=== PATIENT | female | born 1955 | race Caucasian/White ===

== ENCOUNTER 2016-11-07 20:56 | Inpatient (IN) | payer MEDICARE, MEDICAID ==
--- NOTE | 2016-11-07 21:04 | ED Physician Chart ---
Chief Complaint/HPI - Patient Information Date Seen:: 11/07/16 Time Seen:: 20:58 Chief Complaint:: hip pain History of Present Illness:: 61-year-old female living at a board and care, complains of acute, constant, aching, sharp, 8 out of 10, nonradiating, severe, left hip pain that started about 2 hours ago after she fell out of the bunk bed onto her left hip. Allergies:: Allergies Allergy/AdvReac Type Severity Reaction Status Date / Time No Known Allergies Allergy Verified 07/07/16 15:38 Historian:: Patient, EMS Review:: Nurse's Note Reviewed, EMS run form Reviewed, Transfer documents Reviewed Review of Systems - Review of Systems Other: Complete system review otherwise unremarkable except as noted in HPI. Past Medical History - Past Medical History Past Medical History: PUD/GERD Family History: None Social History: Non Smoker, No Alcohol, No Drug Use Surgical History: None Psychiatricy History: Bipolar Medication: Reviewed Family Medical History - Family Member Grandmother History Unknown: Yes Ethnicity: Unknown Living Status: Unknown Hx Family Cancer: Yes (MOTHER) Hx Family Coronary Artery Disease: Yes (FATHER) Hx Family Congestive Heart Failure: (UNKNOWN) Hx Family Hypertension: (UNKNOWN) Hx Family Stroke: (UNKNOWN) Hx Family Diabetes: (UNKNOWN) Hx Family Seizures: (UNKNOWN) Hx Family Dementia: (UNKNOWN) Hx Family AIDS: (UNKNOWN) Hx Family HIV: No Hx Family COPD: (UNKNOWN) Hx Family Hepatitis: (UNKNOWN) Hx Family Psychiatric Problems: (UNKNOWN) Hx Family Tuberculosis: (UNKNOWN) Physical Exam - Physical Examination Other:: INITIAL VITAL SIGNS: Reviewed by me GENERAL: Alert and interactive. No acute distress HEAD: Head is normocephalic and atraumatic EYES: EOMI. . No scleral icterus. No conjunctival injection ENT: Moist mucous membranes. NECK: Supple. No masses. Full range of motion RESPIRATORY: No tachypnea. Clear breath sounds bilaterally. No wheezing, rales, or rhonchi CV: Regular rate and rhythm. No murmurs, rubs, or gallops ABDOMEN: Soft, non-distended, non-tender. No guarding. No rebound. No masses. EXTREMITIES: Left hip has limited range of motion due to pain. SKIN: Warm and dry. No obvious rashes. NEUROLOGIC: Alert and oriented. Face is symmetric. Speech is normal. Moves all extremities equally. Motor and sensory distally intact. Labs/Radiology/EKG Results - Lab Results Results: Lab Results 11/07/16 11/07/16 11/07/16 Range/Units 22:49 22:49 22:49 WBC 13.0 H D (4.8-10.8) Th/cmm RBC 4.74 (3.80-5.10) Mil/cmm Hgb 14.0 (11.7-15.5) gm/dL Hct 41.2 (35.0-45.0) % MCV 86.9 (81-100) fl MCH 29.5 (27.0-31.0) pg MCHC Differential 34.0 (28.0-36.0) pg RDW 12.0 (11.5-20.0) % Plt Count 306 (150-400) Th/cmm MPV 7.6 fl Neutrophils % 56.9 (40.0-80.0) % Lymphocytes % 32.0 (20.0-50.0) % Monocytes % 7.5 (2.0-10.0) % Eosinophils % 2.8 (0.0-5.0) % Basophils % 0.8 (0.0-2.0) % PT 9.3 L (9.5-11.5) SECONDS INR 0.94 (0.5-1.4) PTT (Actin FS) 24.6 L (26.0-38.0) SECONDS Sodium 136 (136-145) mEq/L Potassium 3.8 (3.5-5.1) mEq/L Chloride 106 (98-107) mEq/L Carbon Dioxide 26.8 (21.0-31.0) mEq/L Anion Gap 7.0 (7.0-16.0) BUN 12 (7-25) mg/dL Creatinine 0.7 (0.6-1.2) mg/dL Est GFR ( Amer) > 60.0 (>90) ml/min Est GFR (Non-Af Amer) > 60.0 ml/min BUN/Creatinine Ratio 17.1 Glucose 106 H (70-105) mg/dL Whole Bld Lactic Acid (0.60-2.00) mmol/L Calcium 9.2 (8.6-10.3) mg/dL Total Bilirubin 0.2 L (0.3-1.0) mg/dL AST 15 (13-39) U/L ALT 20 (7-52) U/L Alkaline Phosphatase 69 (34-104) U/L Total Protein 6.4 (6.0-8.3) gm/dL Albumin 3.7 (3.7-5.3) gm/dL Globulin 2.7 gm/dL Albumin/Globulin Ratio 1.4 (1.0-1.8) 11/07/16 Range/Units 22:49 WBC (4.8-10.8) Th/cmm RBC (3.80-5.10) Mil/cmm Hgb (11.7-15.5) gm/dL Hct (35.0-45.0) % MCV (81-100) fl MCH (27.0-31.0) pg MCHC Differential (28.0-36.0) pg RDW (11.5-20.0) % Plt Count (150-400) Th/cmm MPV fl Neutrophils % (40.0-80.0) % Lymphocytes % (20.0-50.0) % Monocytes % (2.0-10.0) % Eosinophils % (0.0-5.0) % Basophils % (0.0-2.0) % PT (9.5-11.5) SECONDS INR (0.5-1.4) PTT (Actin FS) (26.0-38.0) SECONDS Sodium (136-145) mEq/L Potassium (3.5-5.1) mEq/L Chloride (98-107) mEq/L Carbon Dioxide (21.0-31.0) mEq/L Anion Gap (7.0-16.0) BUN (7-25) mg/dL Creatinine (0.6-1.2) mg/dL Est GFR ( Amer) (>90) ml/min Est GFR (Non-Af Amer) ml/min BUN/Creatinine Ratio Glucose (70-105) mg/dL Whole Bld Lactic Acid 1.11 (0.60-2.00) mmol/L Calcium (8.6-10.3) mg/dL Total Bilirubin (0.3-1.0) mg/dL AST (13-39) U/L ALT (7-52) U/L Alkaline Phosphatase (34-104) U/L Total Protein (6.0-8.3) gm/dL Albumin (3.7-5.3) gm/dL Globulin gm/dL Albumin/Globulin Ratio (1.0-1.8) ED Septic Shock - . Is Septic Shock (SBP<90, OR Lactate>4 mmol\L) present?: No Reassessment (Disposition) - Reassessment Reassessment:: Patient is status post fall. She is in severe pain in the left hip and low back area. She also has leukocytosis. I discussed the case in detail with Dr. Yi. He will admit the patient for further workup and treatment. Reassessment Condition:: Improved - Diagnosis Diagnosis:: Leukocytosis Status post fall Hypotension - Patient Disposition Admitting Medical Physician:: Matt Yi Time:: 23:49 Condition at Disposition:: Stable ED Discharge Plan - Patient Disposition Admit/Discharge/Transfer: Acute Care w/in this hosp
[2016-11-07 23:11] LABS: % BASOPHILS 0.8 % (0.0-2.0); % EOSINOPHILS 2.8 % (0.0-5.0); % MONOCYTES 7.5 % (2.0-10.0); % NEUTROPHILS 56.9 % (40.0-80.0); HEMATOCRIT 41.2 % (35.0-45.0); MEAN CELL VOLUME 86.9 fl (81-100); MEAN CORPUSCULAR HEMOGLOBIN 29.5 pg (27.0-31.0); MEAN PLATELET VOLUME 7.6 fl; NEUTROPHILE ABSOLUTE 7.3 Th/cmm (1.8-8.0); PLATELET COUNT 306 Th/cmm (150-400); RED BLOOD COUNT 4.74 Mil/cmm (3.80-5.10)
[2016-11-07 23:20] LABS: INR 0.94 (0.5-1.4); PROTHROMBIN TIME (TEST) 9.3 SECONDS (9.5-11.5)
[2016-11-07 23:21] LABS: ALB/GLOB RATIO 1.4 (1.0-1.8); ALKALINE PHOSPHATASE 69 U/L (34-104); BILIRUBIN,TOTAL 0.2 mg/dL (0.3-1.0); BUN - UREA NITROGEN 12 mg/dL (7-25); BUN/CREATININE RATIO 17.1; CALCIUM SERUM 9.2 mg/dL (8.6-10.3); CARBON DIOXIDE 26.8 mEq/L (21.0-31.0); CHLORIDE 106 mEq/L (98-107); CREATININE - SERUM 0.7 mg/dL (0.6-1.2); GLUCOSE 106 mg/dL (70-105); POTASSIUM SERUM 3.8 mEq/L (3.5-5.1); SGOT 15 U/L (13-39); SGPT/ALT 20 U/L (7-52); SODIUM SERUM 136 mEq/L (136-145)
[2016-11-08] MEDS ORDERED: guaiFENesin 200 MG/10 ML UDC PO PRN (00:04)
[2016-11-08 00:14] LABS: URINE BILIRUBIN NEGATIVE (NEGATIVE); URINE BLOOD NEGATIVE (NEGATIVE); URINE COLOR YELLOW; URINE GLUCOSE (UA) NEGATIVE (NEGATIVE); URINE KETONE NEGATIVE (NEGATIVE); URINE PH 5.5; URINE PROTEIN NEGATIVE (NEGATIVE); URINE UROBILINOGEN 0.2 E.U./dL (0.2 - 1.0)
[2016-11-08 00:15] LABS: URINE BACTERIA FEW /hpf (NONE SEEN); URINE EPITHELIAL CELLS FEW /lpf (FEW); URINE RBC 0-2 /hpf (0-5)
[2016-11-08] MEDS ORDERED: D5-0.45NS 1,000 ML IV SCH (00:15)
[2016-11-08] MEDS: Hydrocodone/APAP 5mg/325mg Tab PO PRN ×4 (01:38→21:58)
[2016-11-08 03:41] VITALS: BP 128/59
--- NOTE | 2016-11-08 04:13 | Admit Criteria Form ---
Admit Criteria Forms - Admit Criteria Diagnosis: MUSCULOSKELETAL DISEASE [facility] Clinical Indications for Admission to Inpatient Care (Place 'X' for any and all applicable criteria): Hospital admission is needed for appropriate care of the patient because of ANY ONE of the following: [X ]I. Fracture, dislocation, or other musculoskeletal injury requiring inpatient care(medical) as indicated by ANY ONE of the following(4)(5)(6)(7) [ ]a) Vertebral fracture requiring observation for instability or neurologic compromise (8) [ ]b) Compartment syndrome (proven or cannot be ruled out during observation level of care) (9) [ ]c) Limb-threatening injury [ ]d) Major injury requiring inpatient stabilization such as traction initiation or external fixation before internal fixation or closure of complex or open fracture [ ]e) Major injury requiring inpatient treatment after emergency or observation level care (as appropriate) [X ]f) Severe pain requiring acute inpatient management [ ]II. Newly diagnosed or suspected bone, joint, or orthopedic device infection (e.g., osteomyelitis, septic arthritis) needing ANY ONE of the following(1)(2)(3) [ ]a) IV antibiotics that cannot be initiated in other than inpatient setting (e.g., patient too unstable or home infusion not available) [ ]b) Device removal or replacement [ ]c) Bone or soft tissue debridement [ ]d) Joint drainage (drain placement or repetitive aspirations) [ ]III. Severe rheumatologic disease (e.g., systemic lupus erythematosus, rheumatoid arthritis) with complications or comorbidities (Also use Optimal Recovery Care Criteria or General Recovery Criteria as appropriate on the basis of predominant condition), including ANY ONE of the following(10 )(11)(12)(13) [ ]a) Severe infection (e.g., NOTEMAN infection, sepsis) (14) [ ]b) Respiratory complications, including ANY ONE of the following: [ ]i) Pleural effusion with respiratory compromise [ ]ii) Pulmonary hypertension with congestive failure [ ]iii) Respiratory failure [ ]iv) Pulmonary hemorrhage (15) [ ]c) Hematologic disease, including ANY ONE of the following: [ ]i) Coagulopathy with bleeding [ ]ii) Thrombosis with hypercoagulable state [ ]iii) Thrombotic thrombocytopenic purpura [ ]d) Cerebritis with seizures, psychosis, or other severe abnormalities [ ]e) Vertebral destruction with monitoring needed for cervical myelopathy& possible respiratory compromise [ ]f) Exacerbation that requires inpatient treatment (e.g., intravenous immunosuppression) (16) [ ]g) Acute renal failure [ ]IV. Severe vasculitis with complications or comorbidities (Also use Optimal Recovery Care Criteria or General Recovery Criteria as appropriate on the basis of predominant condition), including ANY ONE of the following(11)(12)(17)(18)(19)(20) [ ]a) NOTEMAN vasculitis with seizures, psychosis, or other severe abnormalities (22) [ ]b) Renal failure (16) [ ]c) Pulmonary hemorrhage (15) [ ]d) Cerebral infarction [ ]e) Gastrointestinal ischemia [ ]f) Gangrene or threatened amputation [ ]g) Exacerbation that requires inpatient treatment (e.g., intravenous immunosuppression) (19)(21) [ ]V. Severe myopathy as indicated by ANY ONE of the following (28)(29) [ ]a) New onset of airway compromise or inability to swallow [ ]b) Respiratory deterioration with observation needed for impending respiratory failure [ ]c) Exacerbation that requires inpatient treatment (e.g., intravenous immunosuppression) [ ]. Severe gout (crystal arthropathy) as indicated by ANY ONE of the following (23)(24) [ ]a) Severe pain requiring acute inpatient management [ ]b) Exacerbation that requires inpatient treatment (e.g., intravenous treatment) [ ]VII.Rhabdomyolysis and ANY ONE of the following (25)(26)(27) [ ]a) Acute renal failure [ ]b) Need for intravenous hydration after emergency or observation level care (as appropriate) [ ]c) Inability to maintain oral hydration [ ]d) Change in mental status [ ]e) Electrolyte abnormality that remains after emergency or observation level care (as appropriate) [ ]VIII Post amputation complication, as indicated by ANY ONE of the following [ ]a) Infection [ ]b) Dehiscence [ ]c) Myodesis failure [ ]IX. Severe pain requiring acute inpatient management as indicated by ALL of the following (30)(31)(32) [ ]a) Continuous or frequent (e.g., every 2 to 4 hrs) parenteral analgesics required [A] [ ]b) Rapid improvement expected from treatment or acute intervention ( e.g., surgery, anesthesia procedure[B] [ ]X. Musculoskeletal Disease and ALL of the following: [ ]a) Symptom or finding for which emergency and observation care have failed or are not considered appropriate (Use General Criteria: Observation Care as appropriate) [ ]b) Presence of ANY ONE of the following [ ]i) A General Admission Criteria [ ]ii) A Pediatric General Admission Criteria The original [facility] content created by [facility] has been revised. The portions of the content which have been revised are identified through the use of italic text or in bold, and [facility] has neither reviewed nor approved the modified material. All other unmodified content is copyright [facility]. Please see references footnoted in the original [facility] edition 2016 Admit Criteria Met?: Yes
[2016-11-08 05:45] LABS: % BASOPHILS 0.9 % (0.0-2.0); % LYMPHOCYTES 34.8 % (20.0-50.0); % MONOCYTES 8.9 % (2.0-10.0); % NEUTROPHILS 52.4 % (40.0-80.0); HEMATOCRIT 41.5 % (35.0-45.0); MEAN CELL VOLUME 87.6 fl (81-100); MEAN CORPUSCULAR HEMOGLOBIN 29.6 pg (27.0-31.0); MEAN CORPUSCULAR HGB CONC 33.8 pg (28.0-36.0); MEAN PLATELET VOLUME 7.5 fl; PLATELET COUNT 321 Th/cmm (150-400); RED BLOOD COUNT 4.74 Mil/cmm (3.80-5.10)
[2016-11-08 05:54] LABS: WHITE BLOOD COUNT 9.6 Th/cmm (4.8-10.8)
[2016-11-08 07:33] LABS: TSH 1.76 uIU/ml (0.34-5.60)
[2016-11-08] MEDS: Albuterol Nebulizer 2.5mg/3mL IH PRN ×2 (08:49→19:53)
[2016-11-08] MEDS: Ipratropium Neb 0.5 mg/2.5 mL UD IH PRN ×2 (08:49→19:53)
[2016-11-08] MEDS: Lactulose 10 Gm/15 mL 30mL UDC PO SCH ×2 (08:52→16:09)
[2016-11-08] MEDS: Lidocaine 5% Patch TD SCH (08:53)
[2016-11-08] MEDS: Triamcinolone Acetonide 0.1% Cream 15 gm TP SCH ×2 (08:55→16:10)
--- NOTE | 2016-11-08 12:10 | Diagnostic Imaging Report ---
Left hip 2 views Indication: Trauma Comparison: none Findings: Mild degenerative changes are noted. No evidence of an acute fracture or dislocation. No significant focal soft tissue swelling. Impression: No evidence of an acute fracture. In the setting of trauma, if clinical symptoms persist and there is continued concern for an occult fracture, follow up exams in 5-7 days is suggested.
--- NOTE | 2016-11-08 12:12 | Diagnostic Imaging Report ---
Lumbar spine 3 views Indication: Fall Comparison: none Findings: There is probable transitional vertebral body anatomy. Exam is limited due to positioning. No evidence of an acute compression fracture or subluxation. The disc space heights are preserved. Facet degenerative changes are seen at multiple levels advanced along the lower lumbar spine. The SI joints are preserved. Impression: No evidence of an acute compression fracture or subluxation. If indicated follow up CT examination may be obtained for further assessment. Degenerative changes, greatest along the facet joints of the lower lumbar spine. In the setting of trauma, if clinical symptoms persist and there is continued concern for an occult fracture, follow up exams in 5-7 days is suggested.
--- NOTE | 2016-11-08 12:59 | Internal Medicine Prog Note ---
Internal Medicine Subjective - Subjective Service Date: 11/08/16 ([id number]) Internal Medicine Objective - Results Result Diagrams: 11/08/16 05:31 11/07/16 22:49 Recent Labs: Laboratory Last Values WBC 9.6 Th/cmm (4.8-10.8) D 11/08/16 05:31 RBC 4.74 Mil/cmm (3.80-5.10) 11/08/16 05:31 Hgb 14.0 gm/dL (11.7-15.5) 11/08/16 05:31 Hct 41.5 % (35.0-45.0) 11/08/16 05:31 MCV 87.6 fl (81-100) 11/08/16 05:31 MCH 29.6 pg (27.0-31.0) 11/08/16 05:31 MCHC Differential 33.8 pg (28.0-36.0) 11/08/16 05:31 RDW 12.0 % (11.5-20.0) 11/08/16 05:31 Plt Count 321 Th/cmm (150-400) 11/08/16 05:31 MPV 7.5 fl 11/08/16 05:31 Neutrophils % 52.4 % (40.0-80.0) 11/08/16 05:31 Lymphocytes % 34.8 % (20.0-50.0) 11/08/16 05:31 Monocytes % 8.9 % (2.0-10.0) 11/08/16 05:31 Eosinophils % 3.0 % (0.0-5.0) 11/08/16 05:31 Basophils % 0.9 % (0.0-2.0) 11/08/16 05:31 PT 9.3 SECONDS (9.5-11.5) L 11/07/16 22:49 INR 0.94 (0.5-1.4) 11/07/16 22:49 PTT (Actin FS) 24.6 SECONDS (26.0-38.0) L 11/07/16 22:49 Sodium 136 mEq/L (136-145) 11/07/16 22:49 Potassium 3.8 mEq/L (3.5-5.1) 11/07/16 22:49 Chloride 106 mEq/L (98-107) 11/07/16 22:49 Carbon Dioxide 26.8 mEq/L (21.0-31.0) 11/07/16 22:49 Anion Gap 7.0 (7.0-16.0) 11/07/16 22:49 BUN 12 mg/dL (7-25) 11/07/16 22:49 Creatinine 0.7 mg/dL (0.6-1.2) 11/07/16 22:49 Est GFR ( Amer) > 60.0 ml/min (>90) 11/07/16 22:49 Est GFR (Non-Af Amer) > 60.0 ml/min 11/07/16 22:49 BUN/Creatinine Ratio 17.1 11/07/16 22:49 Glucose 106 mg/dL (70-105) H 11/07/16 22:49 Whole Bld Lactic Acid 1.11 mmol/L (0.60-2.00) 11/07/16 22:49 Calcium 9.2 mg/dL (8.6-10.3) 11/07/16 22:49 Total Bilirubin 0.2 mg/dL (0.3-1.0) L 11/07/16 22:49 AST 15 U/L (13-39) 11/07/16 22:49 ALT 20 U/L (7-52) 11/07/16 22:49 Alkaline Phosphatase 69 U/L (34-104) 11/07/16 22:49 Ammonia 42 umol/L (16-53) 11/08/16 05:31 Total Protein 6.4 gm/dL (6.0-8.3) 11/07/16 22:49 Albumin 3.7 gm/dL (3.7-5.3) 11/07/16 22:49 Globulin 2.7 gm/dL 11/07/16 22:49 Albumin/Globulin Ratio 1.4 (1.0-1.8) 11/07/16 22:49 TSH 1.76 uIU/ml (0.34-5.60) 11/08/16 05:31 Urine Source CLEAN C 11/07/16 23:37 Urine Color YELLOW 11/07/16 23:37 Urine Clarity CLEAR (CLEAR) 11/07/16 23:37 Urine pH 5.5 11/07/16 23:37 Ur Specific [place] 1.015 (1.005-1.030) 11/07/16 23:37 Urine Protein NEGATIVE mg/dL (NEGATIVE) 11/07/16 23:37 Urine Glucose (UA) NEGATIVE mg/dL (NEGATIVE) 11/07/16 23:37 Urine Ketones NEGATIVE mg/dL (NEGATIVE) 11/07/16 23:37 Urine Blood NEGATIVE (NEGATIVE) 11/07/16 23:37 Urine Nitrate NEGATIVE (NEGATIVE) 11/07/16 23:37 Urine Bilirubin NEGATIVE (NEGATIVE) 11/07/16 23:37 Urine Urobilinogen 0.2 E.U./dL (0.2 - 1.0) 11/07/16 23:37 Ur Leukocyte Esterase TRACE (NEGATIVE) H 11/07/16 23:37 Urine RBC 0-2 /hpf (0-5) 11/07/16 23:37 Urine WBC 2-5 /hpf (0-5) 11/07/16 23:37 Ur Epithelial Cells FEW /lpf (FEW) 11/07/16 23:37 Urine Bacteria FEW /hpf (NONE SEEN) 11/07/16 23:37 Urine Mucus FEW /lpf (FEW) 11/07/16 23:37 Urine Test NEGATIVE 11/07/16 23:37 - Physical Exam Vitals and I&O: Vital Signs Temp 97.3 F 11/08/16 11:00 Pulse 80 11/08/16 11:00 Resp 20 11/08/16 11:00 BP 102/66 11/08/16 11:00 Pulse Ox 94 11/08/16 11:00 Intake & Output 11/07/16 11/08/16 11/08/16 18:59 06:59 18:59 Intake Total 100 Balance 100 Weight (lbs) 200 lb Intake: Oral 100 Other: # Voids 2 Stool Characteristics Soft Active Medications: Current Medications Acetaminophen (Tylenol) 650 mg PO Q4HR PRN PRN Reason: Pain or Fever >101 Stop: 01/07/17 00:03 Acetaminophen/Hydrocodone Bitart ([place] 5mg/325mg) 1 tab PO Q6H PRN PRN Reason: Pain (Mild) Stop: 01/06/17 23:45 Last Admin: 11/08/16 09:16 Dose: 1 tab Albuterol Sulfate (Albuterol 2.5mg/3ml Neb Ud) 2.5 mg IH Q2HR PRN PRN Reason: Shortness of Breath or Wheeze Stop: 01/07/17 00:03 Last Admin: 11/08/16 08:49 Dose: 2.5 mg Alprazolam (Xanax) 0.5 mg PO BID PRN; Protocol PRN Reason: Anxiety Stop: 01/07/17 08:59 Amitriptyline HCl (Elavil) 25 mg PO HS [facility] PRN Reason: Protocol Stop: 01/07/17 20:59 Guaifenesin (Robitussin) 200 mg PO Q4HR PRN PRN Reason: Cough or Congestion Stop: 01/07/17 00:03 Heparin Sodium (Porcine) (Heparin) 5,000 units SUBQ Q12HR [facility] Stop: 01/07/17 08:59 Last Admin: 11/08/16 08:52 Dose: 5,000 units Dextrose/Sodium Chloride (D5-0.45ns) 1,000 mls @ 80 mls/hr IV .[id number] [facility] Stop: 01/07/17 00:14 Ipratropium [place] (Atrovent Neb 0.5mg/2.5ml) 0.5 mg IH Q2HR PRN PRN Reason: Shortness of Breath or Wheeze Stop: 01/07/17 00:03 Last Admin: 11/08/16 08:49 Dose: 0.5 mg Lactulose (Cephulac) 20 gm PO BID [facility] Stop: 01/07/17 08:59 Last Admin: 11/08/16 08:52 Dose: 20 gm Lamotrigine (Lamictal) 50 mg PO BID [facility] PRN Reason: Protocol Stop: 01/07/17 08:59 Last Admin: 11/08/16 08:54 Dose: 50 mg Lidocaine (Lidoderm 5% Patch) 1 patch TD DAILY [facility] Stop: 01/07/17 08:59 Last Admin: 11/08/16 08:53 Dose: 1 patch Morphine Sulfate (Morphine) 2 mg IVP Q4HR PRN PRN Reason: Pain (Severe) Stop: 01/07/17 00:03 Ondansetron HCl (Zofran) 4 mg IV Q8H PRN PRN Reason: Nausea / Vomiting Stop: 01/07/17 00:03 Quetiapine Fumarate (Seroquel) 200 mg PO BID [facility] PRN Reason: Protocol Stop: 01/07/17 08:59 Last Admin: 11/08/16 08:55 Dose: 200 mg Trazodone HCl (Desyrel) 100 mg PO HS [facility] PRN Reason: Protocol Stop: 01/07/17 20:59 Triamcinolone Acetonide (Kenalog 0.1%) 1 appl TP BID [facility] Stop: 01/07/17 08:59 Last Admin: 11/08/16 08:55 Dose: 1 appl Internal Medicine Assmt/Plan - Assessment Assessment: acute hip pain, s/p fall elevated white count headache dizziness
--- NOTE | 2016-11-08 14:44 | Diagnostic Imaging Report ---
Head CT without intravenous contrast Indication: Headache Comparison: Head CT on 07/10/2016 Technique: Axial images were obtained from the vertex to the skull base without IV contrast. Coronal reconstructions were made. Total DLP: 638, CTD I 37.4 Findings: Images of the brain obtained without contrast demonstrate no acute hemorrhage. No mass lesions identified. The ventricles and basal cisterns are patent. The drake-white matter differentiation is preserved. There is no mass effect or midline shift. No skull fractures identified. No soft tissue swelling. The paranasal sinuses are clear. IMPRESSION: No acute intracranial abnormality.
--- NOTE | 2016-11-08 15:49 | History & Physical ---
CHIEF COMPLAINT: Status post fall, acute hip pain. HISTORY OF PRESENT ILLNESS: This is a 61-year-old female who is a board and care resident of [facility]. According to the patient, she has been having multiple falls over the past year. The patient states before she falls, she experiences dizziness. The patient stated that she fell on her hip and she complains of 8/10 pain. In the ER, the patient had an x-ray of her hip, did not show any fractures, however, the patient states that she is complaining of severe headaches and dizziness before she falls. PAST MEDICAL HISTORY: GERD. FAMILY HISTORY: Noncontributory. SOCIAL HISTORY: Denies any smoking, drinking alcohol or any illicit drug usage. The patient is a board and care resident. PAST SURGICAL HISTORY: None per patient. MEDICATIONS: Please see medication reconciliation sheet. REVIEW OF SYSTEMS: GENERAL: Denies any fevers, any chills. CARDIOVASCULAR: Denies any chest pain. RESPIRATORY: Denies any shortness of breath. GASTROINTESTINAL: Denies nausea, vomiting or abdominal pain. GENITOURINARY: Denies any dysuria. MUSCULOSKELETAL: Has complaints of left hip pain. NEUROLOGIC: The patient complains of headache and dizziness. All other systems are reviewed by me and are negative. PHYSICAL EXAMINATION: GENERAL: The patient is well developed, well nourished in no apparent distress. VITAL SIGNS: Temperature 97.3, heart rate 80, blood pressure 102/66, respirations 20, O2 94%. HEENT: Head; normocephalic, atraumatic. NECK: Supple. No mass. LUNGS: Clear bilaterally upon auscultation. HEART: Regular rhythm, no murmurs, gallops. ABDOMEN: Soft, nontender, nondistended. Positive bowel sounds in all 4 quadrants. ASSESSMENT: Status post fall, acute hip pain, elevated white count. PLAN: The patient will have neuro consult, also physical therapy. The patient will have ultrasound of her carotid and CT of the head as well. We will continue to monitor the patient. JOB# [id number]
[2016-11-09] MEDS: Hydrocodone/APAP 5mg/325mg Tab PO PRN ×3 (04:37→18:53)
[2016-11-09 07:06] LABS: ANION GAP 9.7 (7.0-16.0); BUN - UREA NITROGEN 11 mg/dL (7-25); BUN/CREATININE RATIO 18.3; CALCIUM SERUM 9.1 mg/dL (8.6-10.3); CARBON DIOXIDE 28.5 mEq/L (21.0-31.0); CHLORIDE 105 mEq/L (98-107); CREATININE - SERUM 0.6 mg/dL (0.6-1.2); GLUCOSE 98 mg/dL (70-105); POTASSIUM SERUM 4.2 mEq/L (3.5-5.1); SODIUM SERUM 139 mEq/L (136-145)
[2016-11-09 07:14] LABS: % BASOPHILS 0.7 % (0.0-2.0); % LYMPHOCYTES 34.9 % (20.0-50.0); % MONOCYTES 10.4 % (2.0-10.0); HEMOGLOBIN 14.2 gm/dL (11.7-15.5); MEAN CELL VOLUME 87.4 fl (81-100); MEAN CORPUSCULAR HEMOGLOBIN 29.4 pg (27.0-31.0); MEAN CORPUSCULAR HGB CONC 33.7 pg (28.0-36.0); NEUTROPHILE ABSOLUTE 4.2 Th/cmm (1.8-8.0); PLATELET COUNT 315 Th/cmm (150-400); RED BLOOD COUNT 4.81 Mil/cmm (3.80-5.10); WHITE BLOOD COUNT 8.4 Th/cmm (4.8-10.8)
[2016-11-09] MEDS: Lidocaine 5% Patch TD SCH (08:48)
[2016-11-09] MEDS: Lactulose 10 Gm/15 mL 30mL UDC PO SCH ×2 (08:48→16:36)
[2016-11-09] MEDS: Triamcinolone Acetonide 0.1% Cream 15 gm TP SCH ×2 (08:49→16:36)
--- NOTE | 2016-11-09 11:05 | Consultation ---
HISTORY OF PRESENT ILLNESS: The patient is a 61-year-old. The patient lives in [facility]. The patient apparently with multiple falls. This time, she was in the bed. She fell off the bed. Complains of the hip pain. No ____. Complains of back pain. When I saw the patient lying in bed with arms and legs unable to straighten them for me, legs also semi-flexed, but again very limited movement with increase tone. She has got rigidity and spasticity all over. The patient mumbles and groans and will answer some questions, but not able to give any history. Complains of pain. The patient also complained of headache. The patient says that she feels dizzy. PAST MEDICAL HISTORY: GERD. SURGERIES: None. MEDICATIONS: As per reconciliation. Here, the patient is on hydrocodone, Xanax, amitriptyline, lamotrigine 50 b.i.d. for seizures, Seroquel 200 b.i.d., Desyrel 100 mg at night, morphine on a p.r.n. basis. SOCIAL HISTORY: She does not smoke or drink. REVIEW OF SYSTEMS: Twelve-point negative except for above. On direct questioning from the patient, headache, pressure like. No nausea, vomiting. The patient has very limited information. No chest pain, no shortness of breath. PHYSICAL EXAMINATION: VITAL SIGNS: 98.7, blood pressure 110/70, pulse 80. NECK: Supple. HEART: Normal heart sounds. LUNGS: Bilateral crepitation. ABDOMEN: Soft. NEUROLOGIC: The patient will follow some simple ____, but does not talk much. Could not tell me what day or month or year. CRANIAL: Pupils reactive. The patient face immobile. Motor: Arms and ____ in a semi-flexed position. She will not straighten them for me. Then, she tends to hold them tight. There is some voluntary component, but is also increased tone. Legs increased tone not much moment to painful slight withdrawal. Reflexes about 1 upper lower extremity. Lower extremity, I could not get much because of the tightness. Withdrawal of the toes. INVESTIGATIONS: CT scan of the head, no acute process. Hip x-ray, no fracture noted. Lumbar spine, DJD, but no acute fractures. LABORATORY DATA: WBC 9.6, hemoglobin 14.0, INR normal. Sodium, potassium normal. BUN and creatinine normal. LFTs normal. UA, wbc 2-5. IMPRESSION: 1. Encephalopathy. 2. Possible underlying dementia. 3. Immobility. 4. Recurrent falls. 5. Possible seizure. The patient on medication, I do not know whether for psychiatric reasons or seizures. MANAGEMENT: At this time, I plan to go ahead and do a cervical spine CT at least. We may need an MRI. We will check her labs. Medication adjustment. Suggest psychiatric input. JOB# [id number]
--- NOTE | 2016-11-09 13:56 | Diagnostic Imaging Report ---
CT scan cervical spine HISTORY: Pain, myelopathy Total DLP equals 26 CTDI equals 30.1 Axial sections were obtained through the cervical spine. Additional sagittal and coronal reformatted images are provided. There are relatively severe degenerative changes with large spur formation noted about the endplates of C5, C6, and C7. Smaller spur formation noted about the endplates at C4-5. Spur formation results in moderate to large (4 to 5 mm) extradural indentations on the right anterior spinal canal at C5-6 and C6-7. Neural foraminal encroachment on the right side at these levels. Alignment is normal. There is narrowing of the C5-6 and C6-7 interspaces. The margins of the cervical spinal cord cannot be clearly visualized. The prevertebral soft tissues appear normal. IMPRESSION: 1. Relatively severe degenerative changes C5-6 and C6-7 with neural foraminal encroachment on the right and extradural encroachment on the right anterior spinal canal related to spur formation. Somewhat more mild degenerative changes seen at C4-5.
--- NOTE | 2016-11-09 14:14 | Internal Medicine Prog Note ---
Internal Medicine Subjective - Subjective Patient seen and examined:: with staff, chart reviewed Patient is:: awake, verbal, interactive Patient Complaints of:: congestion Per staff patient is:: no adverse event, no episodes of fall Internal Medicine Objective - Results Result Diagrams: 11/09/16 05:49 11/09/16 05:49 Recent Labs: Laboratory Last Values WBC 8.4 Th/cmm (4.8-10.8) 11/09/16 05:49 RBC 4.81 Mil/cmm (3.80-5.10) 11/09/16 05:49 Hgb 14.2 gm/dL (11.7-15.5) 11/09/16 05:49 Hct 42.0 % (35.0-45.0) 11/09/16 05:49 MCV 87.4 fl (81-100) 11/09/16 05:49 MCH 29.4 pg (27.0-31.0) 11/09/16 05:49 MCHC Differential 33.7 pg (28.0-36.0) 11/09/16 05:49 RDW 12.0 % (11.5-20.0) 11/09/16 05:49 Plt Count 315 Th/cmm (150-400) 11/09/16 05:49 MPV 8.0 fl 11/09/16 05:49 Neutrophils % 51.0 % (40.0-80.0) 11/09/16 05:49 Lymphocytes % 34.9 % (20.0-50.0) 11/09/16 05:49 Monocytes % 10.4 % (2.0-10.0) H 11/09/16 05:49 Eosinophils % 3.0 % (0.0-5.0) 11/09/16 05:49 Basophils % 0.7 % (0.0-2.0) 11/09/16 05:49 PT 9.3 SECONDS (9.5-11.5) L 11/07/16 22:49 INR 0.94 (0.5-1.4) 11/07/16 22:49 PTT (Actin FS) 24.6 SECONDS (26.0-38.0) L 11/07/16 22:49 Sodium 139 mEq/L (136-145) 11/09/16 05:49 Potassium 4.2 mEq/L (3.5-5.1) 11/09/16 05:49 Chloride 105 mEq/L (98-107) 11/09/16 05:49 Carbon Dioxide 28.5 mEq/L (21.0-31.0) 11/09/16 05:49 Anion Gap 9.7 (7.0-16.0) 11/09/16 05:49 BUN 11 mg/dL (7-25) 11/09/16 05:49 Creatinine 0.6 mg/dL (0.6-1.2) 11/09/16 05:49 Est GFR ( Amer) > 60.0 ml/min (>90) 11/09/16 05:49 Est GFR (Non-Af Amer) > 60.0 ml/min 11/09/16 05:49 BUN/Creatinine Ratio 18.3 11/09/16 05:49 Glucose 98 mg/dL (70-105) 11/09/16 05:49 Whole Bld Lactic Acid 1.11 mmol/L (0.60-2.00) 11/07/16 22:49 Calcium 9.1 mg/dL (8.6-10.3) 11/09/16 05:49 Total Bilirubin 0.2 mg/dL (0.3-1.0) L 11/07/16 22:49 AST 15 U/L (13-39) 11/07/16 22:49 ALT 20 U/L (7-52) 11/07/16 22:49 Alkaline Phosphatase 69 U/L (34-104) 11/07/16 22:49 Ammonia 35 umol/L (16-53) 11/09/16 13:24 Total Protein 6.4 gm/dL (6.0-8.3) 11/07/16 22:49 Albumin 3.7 gm/dL (3.7-5.3) 11/07/16 22:49 Globulin 2.7 gm/dL 11/07/16 22:49 Albumin/Globulin Ratio 1.4 (1.0-1.8) 11/07/16 22:49 TSH 1.76 uIU/ml (0.34-5.60) 11/08/16 05:31 Urine Source CLEAN C 11/07/16 23:37 Urine Color YELLOW 11/07/16 23:37 Urine Clarity CLEAR (CLEAR) 11/07/16 23:37 Urine pH 5.5 11/07/16 23:37 Ur Specific [place] 1.015 (1.005-1.030) 11/07/16 23:37 Urine Protein NEGATIVE mg/dL (NEGATIVE) 11/07/16 23:37 Urine Glucose (UA) NEGATIVE mg/dL (NEGATIVE) 11/07/16 23:37 Urine Ketones NEGATIVE mg/dL (NEGATIVE) 11/07/16 23:37 Urine Blood NEGATIVE (NEGATIVE) 11/07/16 23:37 Urine Nitrate NEGATIVE (NEGATIVE) 11/07/16 23:37 Urine Bilirubin NEGATIVE (NEGATIVE) 11/07/16 23:37 Urine Urobilinogen 0.2 E.U./dL (0.2 - 1.0) 11/07/16 23:37 Ur Leukocyte Esterase TRACE (NEGATIVE) H 11/07/16 23:37 Urine RBC 0-2 /hpf (0-5) 11/07/16 23:37 Urine WBC 2-5 /hpf (0-5) 11/07/16 23:37 Ur Epithelial Cells FEW /lpf (FEW) 11/07/16 23:37 Urine Bacteria FEW /hpf (NONE SEEN) 11/07/16 23:37 Urine Mucus FEW /lpf (FEW) 11/07/16 23:37 Urine Test NEGATIVE 11/07/16 23:37 - Physical Exam Vitals and I&O: Vital Signs Temp 97.6 F 11/09/16 12:00 Pulse 83 11/09/16 12:00 Resp 18 11/09/16 12:00 BP 102/64 11/09/16 12:00 Pulse Ox 96 11/09/16 12:00 Intake & Output 11/08/16 11/09/16 11/09/16 18:59 06:59 18:59 Intake Total 650 780 Balance 650 780 Intake: Oral 650 780 Other: # Voids 3 3 Active Medications: Current Medications Acetaminophen (Tylenol) 650 mg PO Q4HR PRN PRN Reason: Pain or Fever >101 Stop: 01/07/17 00:03 Acetaminophen/Hydrocodone Bitart ([place] 5mg/325mg) 1 tab PO Q6H PRN PRN Reason: Pain (Mild) Stop: 01/06/17 23:45 Last Admin: 11/09/16 11:57 Dose: 1 tab Albuterol Sulfate (Albuterol 2.5mg/3ml Neb Ud) 2.5 mg IH Q2HR PRN PRN Reason: Shortness of Breath or Wheeze Stop: 01/07/17 00:03 Last Admin: 11/08/16 19:53 Dose: 2.5 mg Alprazolam (Xanax) 0.5 mg PO BID PRN; Protocol PRN Reason: Anxiety Stop: 01/07/17 08:59 Amitriptyline HCl (Elavil) 25 mg PO HS MARCELL PRN Reason: Protocol Stop: 01/07/17 20:59 Last Admin: 11/08/16 21:54 Dose: 25 mg Guaifenesin (Robitussin) 200 mg PO Q4HR PRN PRN Reason: Cough or Congestion Stop: 01/07/17 00:03 Heparin Sodium (Porcine) (Heparin) 5,000 units SUBQ Q12HR MARCELL Stop: 01/07/17 08:59 Last Admin: 11/09/16 08:48 Dose: 5,000 units Dextrose/Sodium Chloride (D5-0.45ns) 1,000 mls @ 80 mls/hr IV .[id number] MARCELL Stop: 01/07/17 00:14 Last Admin: 11/09/16 04:39 Dose: 80 mls/hr Ipratropium [place] (Atrovent Neb 0.5mg/2.5ml) 0.5 mg IH Q2HR PRN PRN Reason: Shortness of Breath or Wheeze Stop: 01/07/17 00:03 Last Admin: 11/08/16 19:53 Dose: 0.5 mg Lactulose (Cephulac) 20 gm PO BID [facility] Stop: 01/07/17 08:59 Last Admin: 11/09/16 08:48 Dose: 20 gm Lamotrigine (Lamictal) 50 mg PO BID MARCELL PRN Reason: Protocol Stop: 01/07/17 08:59 Last Admin: 11/09/16 08:48 Dose: 50 mg Lidocaine (Lidoderm 5% Patch) 1 patch TD DAILY [facility] Stop: 01/07/17 08:59 Last Admin: 11/09/16 08:48 Dose: 1 patch Morphine Sulfate (Morphine) 2 mg IVP Q4HR PRN PRN Reason: Pain (Severe) Stop: 01/07/17 00:03 Ondansetron HCl (Zofran) 4 mg IV Q8H PRN PRN Reason: Nausea / Vomiting Stop: 01/07/17 00:03 Quetiapine Fumarate (Seroquel) 200 mg PO BID MARCELL PRN Reason: Protocol Stop: 01/07/17 08:59 Last Admin: 11/09/16 08:48 Dose: 200 mg Trazodone HCl (Desyrel) 100 mg PO HS MARCELL PRN Reason: Protocol Stop: 01/07/17 20:59 Last Admin: 11/08/16 21:54 Dose: 100 mg Triamcinolone Acetonide (Kenalog 0.1%) 1 appl TP BID MARCELL Stop: 01/07/17 08:59 Last Admin: 11/09/16 08:49 Dose: 1 appl General: lethargic HEENT: NC/AT, PERRLA Neck: Supple, No JVD Lungs: congested Cardiovascular: RRR, Normal S1, Normal S2 Abdomen: soft non-tender, globular Extremities: excoriation, contracture Neurological: no change Internal Medicine Assmt/Plan - Assessment Assessment: acute hip pain, s/p fall elevated white count headache dizziness encephalopathy - Plan Plan: fall precaution carotid us dw rn
[2016-11-09] MEDS: Ipratropium Neb 0.5 mg/2.5 mL UD IH PRN (14:53)
[2016-11-09] MEDS: Albuterol Nebulizer 2.5mg/3mL IH PRN (14:53)
--- NOTE | 2016-11-09 15:40 | Diagnostic Imaging Report ---
Bilateral carotid Doppler ultrasound exam HISTORY: Dizziness, vertigo Sonographic sector images were obtained through the carotid bifurcation regions bilaterally. Associated Doppler data was obtained. The exam of the right side demonstrates generalized intimal thickening along with mild focal plaque in the carotid bulb region. No significant narrowing or stenosis is seen. Antegrade vertebral artery flow. Mild increase in velocity noted within the external carotid artery region. The ICA/CCA flow ratios normal (0.89). Antegrade vertebral artery flow. The left side demonstrates generalized intimal thickening. No significant focal plaque is seen. Antegrade vertebral artery flow. ICA/CCA flow ratios normal (0.53). IMPRESSION: 1. Mild atherosclerotic changes that do not appear to be hemodynamically significant.
[2016-11-09 16:16] LABS: FOLIC ACID 18.6 ng/mL (>3.0)
[2016-11-09] MEDS: Morphine Sulfate 2 mg/mL 1mL Syr IVP PRN (22:58)
[2016-11-10] MEDS: Morphine Sulfate 2 mg/mL 1mL Syr IVP PRN ×2 (04:40→09:02)
[2016-11-10] MEDS: Triamcinolone Acetonide 0.1% Cream 15 gm TP SCH (08:34)
[2016-11-10] MEDS: Lactulose 10 Gm/15 mL 30mL UDC PO SCH (08:37)
[2016-11-10] MEDS ORDERED: Lidocaine 5% Patch TD SCH (09:00)
--- NOTE | 2016-11-10 12:37 | Internal Medicine Prog Note ---
Internal Medicine Subjective - Subjective Service Date: 11/10/16 (dc summary [id number]) Internal Medicine Objective - Results Result Diagrams: 11/09/16 05:49 11/09/16 05:49 Recent Labs: Laboratory Last Values WBC 8.4 Th/cmm (4.8-10.8) 11/09/16 05:49 RBC 4.81 Mil/cmm (3.80-5.10) 11/09/16 05:49 Hgb 14.2 gm/dL (11.7-15.5) 11/09/16 05:49 Hct 42.0 % (35.0-45.0) 11/09/16 05:49 MCV 87.4 fl (81-100) 11/09/16 05:49 MCH 29.4 pg (27.0-31.0) 11/09/16 05:49 MCHC Differential 33.7 pg (28.0-36.0) 11/09/16 05:49 RDW 12.0 % (11.5-20.0) 11/09/16 05:49 Plt Count 315 Th/cmm (150-400) 11/09/16 05:49 MPV 8.0 fl 11/09/16 05:49 Neutrophils % 51.0 % (40.0-80.0) 11/09/16 05:49 Lymphocytes % 34.9 % (20.0-50.0) 11/09/16 05:49 Monocytes % 10.4 % (2.0-10.0) H 11/09/16 05:49 Eosinophils % 3.0 % (0.0-5.0) 11/09/16 05:49 Basophils % 0.7 % (0.0-2.0) 11/09/16 05:49 PT 9.3 SECONDS (9.5-11.5) L 11/07/16 22:49 INR 0.94 (0.5-1.4) 11/07/16 22:49 PTT (Actin FS) 24.6 SECONDS (26.0-38.0) L 11/07/16 22:49 Sodium 139 mEq/L (136-145) 11/09/16 05:49 Potassium 4.2 mEq/L (3.5-5.1) 11/09/16 05:49 Chloride 105 mEq/L (98-107) 11/09/16 05:49 Carbon Dioxide 28.5 mEq/L (21.0-31.0) 11/09/16 05:49 Anion Gap 9.7 (7.0-16.0) 11/09/16 05:49 BUN 11 mg/dL (7-25) 11/09/16 05:49 Creatinine 0.6 mg/dL (0.6-1.2) 11/09/16 05:49 Est GFR ( Amer) > 60.0 ml/min (>90) 11/09/16 05:49 Est GFR (Non-Af Amer) > 60.0 ml/min 11/09/16 05:49 BUN/Creatinine Ratio 18.3 11/09/16 05:49 Glucose 98 mg/dL (70-105) 11/09/16 05:49 Whole Bld Lactic Acid 1.11 mmol/L (0.60-2.00) 11/07/16 22:49 Calcium 9.1 mg/dL (8.6-10.3) 11/09/16 05:49 Total Bilirubin 0.2 mg/dL (0.3-1.0) L 11/07/16 22:49 AST 15 U/L (13-39) 11/07/16 22:49 ALT 20 U/L (7-52) 11/07/16 22:49 Alkaline Phosphatase 69 U/L (34-104) 11/07/16 22:49 Ammonia 35 umol/L (16-53) 11/09/16 13:24 Total Protein 6.4 gm/dL (6.0-8.3) 11/07/16 22:49 Albumin 3.7 gm/dL (3.7-5.3) 11/07/16 22:49 Globulin 2.7 gm/dL 11/07/16 22:49 Albumin/Globulin Ratio 1.4 (1.0-1.8) 11/07/16 22:49 Vitamin B12 491 pg/mL (211-946) 11/08/16 05:31 Folic Acid 18.6 ng/mL (>3.0) 11/08/16 05:31 TSH 1.76 uIU/ml (0.34-5.60) 11/08/16 05:31 Urine Source CLEAN C 11/07/16 23:37 Urine Color YELLOW 11/07/16 23:37 Urine Clarity CLEAR (CLEAR) 11/07/16 23:37 Urine pH 5.5 11/07/16 23:37 Ur Specific [place] 1.015 (1.005-1.030) 11/07/16 23:37 Urine Protein NEGATIVE mg/dL (NEGATIVE) 11/07/16 23:37 Urine Glucose (UA) NEGATIVE mg/dL (NEGATIVE) 11/07/16 23:37 Urine Ketones NEGATIVE mg/dL (NEGATIVE) 11/07/16 23:37 Urine Blood NEGATIVE (NEGATIVE) 11/07/16 23:37 Urine Nitrate NEGATIVE (NEGATIVE) 11/07/16 23:37 Urine Bilirubin NEGATIVE (NEGATIVE) 11/07/16 23:37 Urine Urobilinogen 0.2 E.U./dL (0.2 - 1.0) 11/07/16 23:37 Ur Leukocyte Esterase TRACE (NEGATIVE) H 11/07/16 23:37 Urine RBC 0-2 /hpf (0-5) 11/07/16 23:37 Urine WBC 2-5 /hpf (0-5) 11/07/16 23:37 Ur Epithelial Cells FEW /lpf (FEW) 11/07/16 23:37 Urine Bacteria FEW /hpf (NONE SEEN) 11/07/16 23:37 Urine Mucus FEW /lpf (FEW) 11/07/16 23:37 Urine Test NEGATIVE 11/07/16 23:37 - Physical Exam Vitals and I&O: Vital Signs Temp 97.9 F 11/10/16 12:00 Pulse 85 11/10/16 12:00 Resp 17 11/10/16 12:00 BP 108/64 11/10/16 12:00 Pulse Ox 98 11/10/16 12:00 Intake & Output 11/09/16 11/10/16 11/10/16 18:59 06:59 18:59 Intake Total 650 420 Balance 650 420 Intake: Oral 650 420 Other: # Voids 3 # Bowel Movements 2 Active Medications: Current Medications Acetaminophen (Tylenol) 650 mg PO Q4HR PRN PRN Reason: Pain or Fever >101 Stop: 01/07/17 00:03 Acetaminophen/Hydrocodone Bitart ([place] 5mg/325mg) 1 tab PO Q6H PRN PRN Reason: Pain (Mild) Stop: 01/06/17 23:45 Last Admin: 11/09/16 18:53 Dose: 1 tab Albuterol Sulfate (Albuterol 2.5mg/3ml Neb Ud) 2.5 mg IH Q2HR PRN PRN Reason: Shortness of Breath or Wheeze Stop: 01/07/17 00:03 Last Admin: 11/09/16 14:53 Dose: 2.5 mg Alprazolam (Xanax) 0.5 mg PO BID PRN; Protocol PRN Reason: Anxiety Stop: 01/07/17 08:59 Amitriptyline HCl (Elavil) 25 mg PO HS MARCELL PRN Reason: Protocol Stop: 01/07/17 20:59 Last Admin: 11/09/16 20:46 Dose: 25 mg Guaifenesin (Robitussin) 200 mg PO Q4HR PRN PRN Reason: Cough or Congestion Stop: 01/07/17 00:03 Heparin Sodium (Porcine) (Heparin) 5,000 units SUBQ Q12HR MARCELL Stop: 01/07/17 08:59 Last Admin: 11/10/16 08:37 Dose: Not Given Dextrose/Sodium Chloride (D5-0.45ns) 1,000 mls @ 80 mls/hr IV .[id number] MARCELL Stop: 01/07/17 00:14 Last Admin: 11/09/16 04:39 Dose: 80 mls/hr Ipratropium [place] (Atrovent Neb 0.5mg/2.5ml) 0.5 mg IH Q2HR PRN PRN Reason: Shortness of Breath or Wheeze Stop: 01/07/17 00:03 Last Admin: 11/09/16 14:53 Dose: 0.5 mg Lactulose (Cephulac) 20 gm PO BID MARCELL Stop: 01/07/17 08:59 Last Admin: 11/10/16 08:37 Dose: Not Given Lamotrigine (Lamictal) 50 mg PO BID MARCELL PRN Reason: Protocol Stop: 01/07/17 08:59 Last Admin: 11/10/16 08:34 Dose: 50 mg Lidocaine (Lidoderm 5% Patch) 1 patch TD Q24H MARCELL Stop: 01/09/17 08:59 Last Admin: 11/10/16 08:59 Dose: 1 patch Morphine Sulfate (Morphine) 2 mg IVP Q4HR PRN PRN Reason: Pain (Severe) Stop: 01/07/17 00:03 Last Admin: 11/10/16 09:02 Dose: 2 mg Ondansetron HCl (Zofran) 4 mg IV Q8H PRN PRN Reason: Nausea / Vomiting Stop: 01/07/17 00:03 Last Admin: 11/09/16 22:58 Dose: 4 mg Quetiapine Fumarate (Seroquel) 200 mg PO BID MARCELL PRN Reason: Protocol Stop: 01/07/17 08:59 Last Admin: 11/10/16 08:33 Dose: 200 mg Trazodone HCl (Desyrel) 100 mg PO HS MARCELL PRN Reason: Protocol Stop: 01/07/17 20:59 Last Admin: 11/09/16 20:46 Dose: 100 mg Triamcinolone Acetonide (Kenalog 0.1%) 1 appl TP BID MARCELL Stop: 01/07/17 08:59 Last Admin: 11/10/16 08:34 Dose: 1 appl Internal Medicine Assmt/Plan - Assessment Assessment: acute hip pain, s/p fall elevated white count headache dizziness
[2016-11-10] MEDS: Hydrocodone/APAP 5mg/325mg Tab PO PRN (13:32)
--- NOTE | 2016-11-10 21:53 | Discharge Summary ---
FINAL DIAGNOSES: Status post fall, acute hip pain, elevated white count, which resolved. HISTORY OF PRESENT ILLNESS: This is a 61-year-old female who is a board and care resident of [facility]. According to the patient, she has been having multiple falls over the past year. The patient states that before she falls, she experiences dizziness. The patient stated that she fell on her hip and she complained of 8/10 pain. In the ER, the patient had an x-ray of her hip that did not shown any fractures; however, the patient states that she is complaining of severe headache and dizziness before she falls. PHYSICAL EXAMINATION: GENERAL: The patient is well developed, well nourished, in no acute distress. VITAL SIGNS: Stable. HEAD: Normocephalic, atraumatic. NECK: Supple. No mass. LUNGS: Clear bilaterally upon auscultation. HEART: Regular rate and rhythm. No murmurs, no gallops. SKIN: Intact, warm to touch. ABDOMEN: Soft, nontender, nondistended. Positive bowel sounds in all 4 quadrants. HOSPITAL COURSE: During the hospital stay, this patient was admitted to the Med/Surg Unit. The patient had a hip x-ray and it did not show any fractures. The patient also had an x-ray of the lumbar spine that was negative for any fractures. The patient also had a CT of the head due to complaints of severe headache and the impression is no acute intracranial abnormality. Due to the patient's dizziness, a carotid ultrasound was ordered and the impression is mild atherosclerotic changes that do not appear to be hemodynamically significant. A CT of the cervical spine was ordered as well and the impression is relatively severe degenerative changes at C5-6 and C6-7 with neural foraminal ____ on the right and extradural ____ on the right anterior spinal canal. The patient's WBC upon admission was 13.0. It was being monitored daily and it went down to 8.4. The patient later then stabilized and was stable for discharge. CONDITION UPON DISCHARGE: Fair. DISPOSITION: The patient is going to [facility]. JOB# [id number]
== END 2016-11-10 16:00 | DRG 555 ==
LOC: ER 20:56 → MSI 23:45
PROVIDERS: ADMIT Internal Medicine; ATTEND Internal Medicine
DX: M25.552 Pain in left hip (principal); G93.41 Metabolic encephalopathy; I95.9 Hypotension, unspecified; F03.90 Unspecified dementia, unspecified severity, without behavioral disturbance, psychotic disturbance, mood disturbance, and anxiety; D72.829 Elevated white blood cell count, unspecified; R42 Dizziness and giddiness; K21.9 Gastro-esophageal reflux disease without esophagitis; R51 Headache; M19.90 Unspecified osteoarthritis, unspecified site; F31.9 Bipolar disorder, unspecified; W06.XXXA Fall from bed, initial encounter; Y93.89 Activity, other specified; Y92.89 Other specified places as the place of occurrence of the external cause; Y99.8 Other external cause status; Z91.81 History of falling; Z82.49 Family history of ischemic heart disease and other diseases of the circulatory system; Z80.9 Family history of malignant neoplasm, unspecified
CPT/HCPCS: 36415-UA; 70450-TC; 72100-TC; 72125-TC; 80048-TC; 80053-TC; 81001-TC; 81003-TC; 81025-TC; 82140-TC; 82607-90; 82746-90; 83605; 84425-90; 84443-TC; 85025-TC; 85610-TC; 85730-TC; 90779; 93880-TC; 94640; 94760; J1644; J1885; J2270; J2405; J7613; X3904; Z7610

== ENCOUNTER 2017-02-09 08:40 | Emergency (ER) | payer MEDICARE, MEDICAID ==
[2017-02-09 09:33] LABS: % BASOPHILS 0.6 % (0.0-2.0); % EOSINOPHILS 2.6 % (0.0-5.0); % LYMPHOCYTES 27.2 % (20.0-50.0); % MONOCYTES 7.4 % (2.0-10.0); % NEUTROPHILS 62.2 % (40.0-80.0); HEMATOCRIT 42.2 % (35.0-45.0); HEMOGLOBIN 14.3 gm/dL (11.7-15.5); MEAN CELL VOLUME 84.9 fl (81-100); MEAN CORPUSCULAR HEMOGLOBIN 28.9 pg (27.0-31.0); MEAN PLATELET VOLUME 7.3 fl; NEUTROPHILE ABSOLUTE 6.3 Th/cmm (1.8-8.0); PLATELET COUNT 273 Th/cmm (150-400); RED BLOOD COUNT 4.97 Mil/cmm (3.80-5.10); RED CELL DISTRIBUTION WIDTH 11.4 % (11.5-20.0); WHITE BLOOD COUNT 10.1 Th/cmm (4.8-10.8)
[2017-02-09 09:52] LABS: INR 0.94 (0.5-1.4); PROTHROMBIN TIME (TEST) 9.8 SECONDS (9.5-11.5)
[2017-02-09 09:54] LABS: ALB/GLOB RATIO 1.6 (1.0-1.8); ALKALINE PHOSPHATASE 62 U/L (34-104); ANION GAP 7.2 (7.0-16.0); BILIRUBIN,TOTAL 0.3 mg/dL (0.3-1.0); BUN - UREA NITROGEN 8 mg/dL (7-25); BUN/CREATININE RATIO 13.3; CALCIUM SERUM 9.4 mg/dL (8.6-10.3); CARBON DIOXIDE 25.8 mEq/L (21.0-31.0); CHLORIDE 108 mEq/L (98-107); CREATININE - SERUM 0.6 mg/dL (0.6-1.2); GLUCOSE 87 mg/dL (70-105); SGOT 15 U/L (13-39); SGPT/ALT 20 U/L (7-52); SODIUM SERUM 137 mEq/L (136-145)
[2017-02-09 09:55] LABS: CHOLESTEROL 215 mg/dL (<200); TRIGLYCERIDES 355 mg/dL (<150)
--- NOTE | 2017-02-09 09:59 | Diagnostic Imaging Report ---
KUB History: Constipation Comparison: None Findings: Gas distended loops of bowel are seen with moderate amount of stool noted. Overall the bowel gas pattern is nonspecific. Degenerative changes of the spine are noted. IMPRESSION: Gas-filled loops of bowel with moderate amount of stool noted. Overall the bowel gas pattern is nonspecific.
--- NOTE | 2017-02-09 10:34 | ED Physician Chart ---
Chief Complaint/HPI - Patient Information Date Seen:: 02/09/17 Time Seen:: 09:00 Chief Complaint:: constipation History of Present Illness:: THIS IS A 61 YO FEMALE WHO IS CONCERNED ABOUT BEING CONSTIPATED AND WANTS TO BE CHECKED. SHE ATE BREAKFAST THIS AM WITH EEGS AND MEAT. SHE HAD A STOOL THIS AM . SHE DENIES FEVER, PAINFUL ABDOMEN AND URINATION. SHE ADMIT TO SMOKING DAILY BUT DENIES DRUG USE. SHE DENIES PREVIOUS ABDOMINAL SURGERY. SHE THINKS THAT SHE HAS BEEN CONSTIPATED ON AND OFF FOR WEEKS. SHE ADMITS TO HAVING A PSYCH DISORDER. Allergies:: Allergies Allergy/AdvReac Type Severity Reaction Status Date / Time ibuprofen [From Motrin] Allergy Verified 02/09/17 08:54 ketorolac [From Toradol] Allergy Verified 02/09/17 08:54 Vitals:: Vital Signs - 8 hr 02/09/17 08:45 Temp 97.9 F HR 86 RR 18 BP 118/81 O2 Sat % 95 Historian:: Patient, Medical Records Review:: Nurse's Note Reviewed Review of Systems - Review of Systems General/Constitutional: No fever, No chills, No weight loss, No weakness, No diaphoresis, No edema, No loss of appetite Skin: Skin lesions, No rash, No bruising, Other (RASH ON BOTH ELBOWS) Head: No headache, No light-headedness Eyes: No loss of vision, No pain, No diplopia ENT: No earache, No nasal drainage, No sore throat, No tinnitus Neck: No neck pain, No swelling, No thyromegaly, No stiffness, No mass noted Cardio Vascular: No chest pain, No palpitations, No PND, No orthopnea, No edema Pulmonary: No SOB, No cough, No sputum, No wheezing GI: No nausea, No vomiting, No diarrhea, No pain, No melena, No hematochezia, Constipation, No hematemesis G/U: No dysuria, No frequency, No hematuria Musculoskeletal: No bone or joint pain, No back pain, No muscle pain Endocrine: No polyuria, No polydipsia Psychiatric: No prior psych history, No depression, No anxiety, No suicidal ideation Hematopoietic: No bruising, No lymphadenopathy Allergic/Immuno: No urticaria, No angioedema Neurological: No syncope, No focal symptoms, No weakness, No paresthesia, No headache, No seizure, No dizziness, No confusion, No vertigo Past Medical History - Past Medical History Obtainable: Yes Past Medical History: Dyslipidemia Family History: None Social History: Smoker, Alcohol, Illicit Drug Use Surgical History: None Psychiatricy History: None Family Medical History - Family Member Grandmother History Unknown: Yes Ethnicity: Non- Living Status: Unknown Hx Family Cancer: Yes (MOTHER) Hx Family Coronary Artery Disease: Yes (FATHER) Hx Family Congestive Heart Failure: (UNKNOWN) Hx Family Hypertension: (UNKNOWN) Hx Family Stroke: (UNKNOWN) Hx Family Diabetes: (UNKNOWN) Hx Family Seizures: (UNKNOWN) Hx Family Dementia: (UNKNOWN) Hx Family AIDS: (UNKNOWN) Hx Family HIV: No Hx Family COPD: (UNKNOWN) Hx Family Hepatitis: (UNKNOWN) Hx Family Psychiatric Problems: (UNKNOWN) Hx Family Tuberculosis: (UNKNOWN) mother History Unknown: Yes Ethnicity: Non- Living Status: Unknown Hx Family Cancer: Yes Hx Family Diabetes: Yes Physical Exam - Physical Examination General/Constitutional: Awake, Well-developed, well-nourished, Alert, No distress, GCS 15, Non-toxic appearing, Ambulatory Head: Atraumatic Eyes: Lids, conjuctiva normal, PERRL, EOMI Skin: Nl inspection, No rash, No skin lesions, No ecchymosis, Well hydrated, No lymphadenopathy ENMT: External ears, nose nl, Nasal exam nl, Lips, teeth, gums nl Neck: Nontender, Full ROM w/o pain, No JVD, No nuchal rigidity, No bruit, No mass, No stridor Respiratory: Nl effort/Exclusion, Clear to Auscultation, No Wheeze/Rhonchi/Rales Cardio Vascular: RRR, No murmur, gallop, rubs, NL S1 S2 GI: No tenderness/rebounding/guarding, No organomegaly, No hernia, Normal BS's, Nondistended, No mass/bruits, No McBurney tenderness : No CVA tenderness Extremities: No tenderness or effusion, Full ROM, normal strength in all extremities, No edema, Normal digits & nails Other Extremities comments:: BOTH ELBOWS Neuro/Psych: Alert/oriented, DTR's symmetric, Normal sensory exam, Normal motor strength, Judgement/insight normal, Mood normal, Normal gait, No focal deficits Misc: normal gait, Normal back, No paraspinal tenderness Labs/Radiology/EKG Results - Lab Results Results: Laboratory Tests 02/09/17 02/09/17 02/09/17 09:10 09:20 09:20 WBC 10.1 D RBC 4.97 Hgb 14.3 Hct 42.2 MCV 84.9 MCH 28.9 MCHC Differential 34.0 RDW 11.4 L Plt Count 273 MPV 7.3 Neutrophils % 62.2 Lymphocytes % 27.2 Monocytes % 7.4 Eosinophils % 2.6 Basophils % 0.6 PT 9.8 INR 0.94 Sodium Potassium Chloride Carbon Dioxide Anion Gap BUN Creatinine Est GFR ( Amer) Est GFR (Non-Af Amer) BUN/Creatinine Ratio Glucose Calcium Total Bilirubin AST ALT Alkaline Phosphatase Troponin I Total Protein Albumin Globulin Albumin/Globulin Ratio Triglycerides 355 H Cholesterol 215 H LDL Cholesterol Direct 133 HDL Cholesterol 41 02/09/17 02/09/17 09:20 09:20 WBC RBC Hgb Hct MCV MCH MCHC Differential RDW Plt Count MPV Neutrophils % Lymphocytes % Monocytes % Eosinophils % Basophils % PT INR Sodium 137 Potassium 4.0 Chloride 108 H Carbon Dioxide 25.8 Anion Gap 7.2 BUN 8 Creatinine 0.6 Est GFR ( Amer) > 60.0 Est GFR (Non-Af Amer) > 60.0 BUN/Creatinine Ratio 13.3 Glucose 87 Calcium 9.4 Total Bilirubin 0.3 AST 15 ALT 20 Alkaline Phosphatase 62 Troponin I < 0.01 L Total Protein 6.7 Albumin 4.1 Globulin 2.6 Albumin/Globulin Ratio 1.6 Triglycerides Cholesterol LDL Cholesterol Direct HDL Cholesterol - Radiology Results Results: NO CONSTIPATION SEEN. ED Septic Shock - . Is Septic Shock (SBP<90, OR Lactate>4 mmol\L) present?: No - <6hrs of presentation: Vital Signs: Vital Signs - 8 hr 02/09/17 08:45 Temp 97.9 F HR 86 RR 18 BP 118/81 O2 Sat % 95 Reassessment (Disposition) - Reassessment Reassessment Condition:: Unchanged - Diagnosis Diagnosis:: CONSTIPATION - Aftercare/Follow up Instructions Aftercare/Follow-Up Instructions:: Counseled pt regarding lab results/diagnosis & need follow up, Refer to Discharge Instructions, Counseled pt & family regarding lab results/diagnosis & need follow up - Patient Disposition Discharge/Transfer:: Home Condition at Disposition:: Unchanged ED Discharge Plan - Patient Disposition Admit/Discharge/Transfer: PT DISCHARGED HOME Condition at Disposition: Improved
== END 2017-02-09 11:15 | disposition home or self-care (01) ==
LOC: ER 08:40
DX: K59.00 Constipation, unspecified (principal); E78.5 Hyperlipidemia, unspecified; K76.9 Liver disease, unspecified; F17.200 Nicotine dependence, unspecified, uncomplicated; R21 Rash and other nonspecific skin eruption; F10.21 Alcohol dependence, in remission; F19.21 Other psychoactive substance dependence, in remission; Z83.3 Family history of diabetes mellitus; K76.89 Other specified diseases of liver
CPT/HCPCS: 36415-UA; 74000-TC; 80053-TC; 80061-TC; 84443-TC; 84484-TC; 85025-TC; 85610-TC; 86592-TC